=== PATIENT | female | born 1960 | race African-American/Black ===

== ENCOUNTER 2016-12-18 07:22 | Emergency (ER) | payer OTHER ==
[~2016-12-18] VITALS: Ht 167.6 cm; Wt 63.0 kg
[~2016-12-18 07:22] MED LIST: SIMV40 PO
[2016-12-18 07:23] VITALS: BP 179/99; PULSE 84; RESP 20; TEMP 98.9; O2SAT 98
[2016-12-18] MEDS ORDERED: POLY10O RIGHT EYE (07:50)
--- NOTE | 2016-12-18 07:51 | PD ---
HPI Chief Complaint: Eye Problems/Injury Time Seen by Provider: 07:50 Travel History International Travel<30 days: No Contact w/Intl Traveler<30days: No Traveled to known affect area: No History of Present Illness HPI 56-year-old female presents to the emergency Department with complaint of right eye itchiness that she woke up with this morning at approximately 3 AM. Reports clear drainage. Reports lid edema that has decreased since she woke up. Denies fever, vomiting. Denies change in vision. Denies eye pain. Denies trauma or foreign body. 2 other people at work that she knows of has similar symptoms. Has used [id number] eyedrops with no relief of symptoms. No known allergies. Has no other medical complaints. No other modifying factors or associated signs and symptoms. PFSH Past Medical History Medical History: Denies Significant Hx Diminished Hearing: No Tetanus Vaccination: Unknown ?: Not Menopausal: Yes Past Surgical History Oral Surgery: Yes Social History Alcohol Use: Yes (OCCASSIONAL) Tobacco Use: Yes (ONE PK PER DAY) Substance Use: Yes (MARIJUANA ) Allergies-Medications (Allergen,Severity, Reaction): Coded Allergies: No Known Allergies (Verified , 06/24/12) Reported Meds & Prescriptions Reported Meds & Active Scripts Active Polytrim Opth Drops (Polymyxin/Trimethoprim Sulfate) 10,000-0.1 Unit/Ml-% Soln 2 Drop RIGHT EYE Q6HR 7 Days Review of Systems Except as stated in HPI: all other systems reviewed are Neg Physical Exam Narrative GENERAL: Well-nourished, well-developed female patient, in no acute distress; afebrile, nontoxic-appearing SKIN: Warm and dry. HEAD: Atraumatic. Normocephalic. EYES: Pupils equal and round at 3 mm with brisk reaction. PERRLA. EOMI. chemosis of the right eye noted. Right eye with scleral erythema and mild lid edema. No orbital tenderness, erythema or cellulitis. Right eye without photophobia. No consensual photophobia. No scleral icterus. Clear drainage. ENT: Mucosa pink and moist. Airway patent. NECK: Trachea midline. CARDIOVASCULAR: Regular rate. RESPIRATORY: No accessory muscle use. GASTROINTESTINAL: Flat. NEUROLOGICAL: Awake and alert. Oriented 3. No obvious cranial nerve deficits. Motor grossly within normal limits. Normal speech. PSYCHIATRIC: Appropriate mood and affect; insight and judgment normal. Data Data Last Documented VS Vital Signs Date Time Temp Pulse Resp B/P Pulse Ox O2 Delivery O2 Flow Rate FiO2 12/18/16 07:23 98.9 84 20 179/99 98 Room Air MDM Medical Decision Making Medical Screen Exam Complete: Yes Emergency Medical Condition: Yes Medical Record Reviewed: Yes Differential Diagnosis Allergic conjunctivitis, bacterial conjunctivitis, less likely corneal abrasion , foreign body Narrative Course 56-year-old female physical exam and history of present illness consistent with right eye conjunctivitis. Patient is afebrile and nontoxic-appearing. Denies fever, vomiting. Polytrim eyedrops prescribed for home. Patient verbalizes understanding and agreement with treatment plan. Patient is medically cleared and stable for discharge. Discussed reasons to return to the emergency department. Instructed patient to follow up with primary care provider. Patient agrees with treatment plan. The patients vital signs are stable and the patient is stable for outpatient follow-up and treatment. Patient discharged home, stable and in no acute distress. Diagnosis Primary Impression: Conjunctivitis, right eye Qualified Code: H10.9 - Conjunctivitis of right eye, unspecified conjunctivitis type Referrals: Primary Care Physician Patient Instructions: Conjunctivitis (ED), General Instructions Departure Forms: Tests/Procedures, Work Release Enter return to work date: December 19, 2016 Additional Instructions: Conjunctivitis is contagious Use antibiotic eye drops as prescribed Apply warm or cool compresses to both eyes for a few minutes several times daily to minimize irritation Avoid triggers, such as allergens, that may irritate your eyes Wash your hands frequently Do not share washcloths, towels, pillows, or any other material that has touched your eyes with any other household members Follow-up with your primary care provider Follow-up with ophthalmology as needed Return to the emergency department immediately with worsening of symptoms Med/Other Pt SpecificInfo: Prescription(s) given Scripts Polymyxin B-Trimethoprim Opth Drops (Polytrim Opth Drops)10,000-0.1 Unit/Ml-% Soln2 Drop RIGHT EYE Q6HR 7 Days Ref 0 Prov:Kadi Akhtar 12/18/16 Disposition: DISCHARGE HOME Condition: Stable Kadi Akhtar December 18, 2016 07:51
== END 2016-12-18 08:06 | disposition home or self-care (01) ==
LOC: NEPK 07:22
DX: H10.9 Unspecified conjunctivitis (principal); F17.210 Nicotine dependence, cigarettes, uncomplicated
CPT/HCPCS: 99283